=== PATIENT | male | born 1990 | race Caucasian/White ===

== ENCOUNTER 2019-11-26 19:29 | Emergency (ER) | payer OTHER ==
[~2019-11-26] VITALS: Ht 182.9 cm; Wt 122.5 kg
[2019-11-26 19:40] VITALS: Ht 182.9 cm; Wt 122.5 kg
[2019-11-26 19:57] VITALS: BP 137/82
== END 2019-11-26 19:57 | disposition home or self-care (01) ==
LOC: ED 19:29
DX: J32.9 Chronic sinusitis, unspecified (principal)